=== PATIENT | female | born 1965 | race Two or more races ===

== ENCOUNTER 2018-11-10 09:50 | Inpatient (IN) | payer OTHER ==
[~2018-11-10] VITALS: Ht 157.5 cm; Wt 195.0 kg
[2018-11-21] MEDS ORDERED: VITAMINA (14:59)
[2018-11-21] MEDS ORDERED: CALTRATE 600+D1 EACH PO (14:59)
[2018-11-21] MEDS ORDERED: LOSARTAN-HCTZ1 EAC2 (14:59)
[2018-11-21] MEDS ORDERED: ECHINACEA400 MG (15:00)
[2018-11-22] MEDS ORDERED: VITAMIN D1000 UNI1 (07:53)
[2018-11-22] MEDS ORDERED: LOSARTAN-HCTZ1 EAC1 PO (07:54)
== END 2018-11-25 12:34 | disposition home or self-care (01) | DRG 331 ==
LOC: SURG 11-17 08:30 → O/R 11-22 06:03 → SURH 11-22 06:03 → SURG 11-22 08:30 → SURH 11-22 17:39
PROVIDERS: ADMIT Colon & Rectal Surgery
PROC: 3E0F7GC Introduction of Other Therapeutic Substance into Respiratory Tract, Via Natural or Artificial Opening (ICD-10-PCS; 2018-11-22)
PROC: 0DTN4ZZ Resection of Sigmoid Colon, Percutaneous Endoscopic Approach (ICD-10-PCS; principal; 2018-11-22 15:30)
DX: K57.32 Diverticulitis of large intestine without perforation or abscess without bleeding (principal); K63.89 Other specified diseases of intestine; I11.9 Hypertensive heart disease without heart failure; J45.20 Mild intermittent asthma, uncomplicated; E66.1 Drug-induced obesity

== ENCOUNTER 2019-09-26 06:22 | Outpatient (CLI) | payer OTHER ==
[~2019-09-26 06:22] MED LIST: CALTRATE 600+D1 EACH PO; ECHINACEA400 MG; LOSARTAN-HCTZ1 EAC1 PO; LOSARTAN-HCTZ1 EAC2; VITAMIN D1000 UNI1; VITAMINA
== END 2019-09-26 15:00 | disposition home or self-care (01) ==
LOC: LAB 06:22
PROVIDERS: ATTEND Obstetrics & Gynecology
DX: D50.8 Other iron deficiency anemias (principal); N39.0 Urinary tract infection, site not specified; E78.49 Other hyperlipidemia; E03.8 Other specified hypothyroidism; E55.9 Vitamin D deficiency, unspecified

== ENCOUNTER 2019-09-26 08:39 | Outpatient (CLI) | payer OTHER | END 2019-09-26 08:42 | disposition home or self-care (01) | LOC: MAMO-SONO 08:39 | PROVIDERS: ATTEND Obstetrics & Gynecology Obstetrics | DX: Z12.31 Encounter for screening mammogram for malignant neoplasm of breast (principal); N64.4 Mastodynia; N64.1 Fat necrosis of breast; Z01.419 Encounter for gynecological examination (general) (routine) without abnormal findings ==

== ENCOUNTER 2019-11-24 07:43 | Outpatient (CLI) | payer OTHER | END 2019-11-24 07:46 | disposition home or self-care (01) | LOC: RAD 07:43 | PROVIDERS: ATTEND Physical Medicine & Rehabilitation Pain Medicine | DX: M17.11 Unilateral primary osteoarthritis, right knee (principal) ==

== ENCOUNTER 2019-12-15 05:47 | Day surgery (SDC) | payer OTHER | END 2019-12-15 10:15 | disposition home or self-care (01) | LOC: AMB-ENDOS 05:47 | PROVIDERS: ATTEND Colon & Rectal Surgery | DX: K63.5 Polyp of colon (principal); K64.1 Second degree hemorrhoids; Z20.828 Contact with and (suspected) exposure to other viral communicable diseases ==

== ENCOUNTER 2020-02-26 07:28 | Outpatient (CLI) | payer OTHER | END 2020-02-26 07:33 | disposition home or self-care (01) | LOC: MRI 07:28 | PROVIDERS: ATTEND Specialist | DX: M17.11 Unilateral primary osteoarthritis, right knee (principal); S83.271A Complex tear of lateral meniscus, current injury, right knee, initial encounter | CPT/HCPCS: 73718 ==

== ENCOUNTER 2020-05-22 11:44 | Outpatient (CLI) | payer OTHER | END 2020-05-22 11:50 | disposition home or self-care (01) | LOC: LAB 11:44 | PROVIDERS: ATTEND Family Medicine | DX: D64.89 Other specified anemias (principal); I10 Essential (primary) hypertension; E11.9 Type 2 diabetes mellitus without complications; N39.0 Urinary tract infection, site not specified; E78.2 Mixed hyperlipidemia; E03.8 Other specified hypothyroidism; E55.9 Vitamin D deficiency, unspecified; Z12.11 Encounter for screening for malignant neoplasm of colon ==

== ENCOUNTER 2020-08-29 06:16 | Outpatient (CLI) | payer OTHER | END 2020-08-29 06:17 | disposition home or self-care (01) | LOC: LAB 06:16 | PROVIDERS: ATTEND Family Medicine | DX: E78.2 Mixed hyperlipidemia (principal) ==

== ENCOUNTER 2020-08-29 07:13 | Outpatient (CLI) | payer OTHER | END 2020-08-29 07:27 | disposition home or self-care (01) | LOC: MAMO-SONO 07:13 → RAD 07:13 → MAMO-SONO 09:15 | DX: R10.84 Generalized abdominal pain (principal); M54.2 Cervicalgia; M54.5 Low back pain; M47.14 Other spondylosis with myelopathy, thoracic region ==

== ENCOUNTER 2020-10-01 07:04 | Outpatient (CLI) | payer OTHER | END 2020-10-01 07:17 | disposition home or self-care (01) | LOC: MAMO-SONO 07:04 | PROVIDERS: ATTEND Family Medicine | DX: N64.59 Other signs and symptoms in breast (principal); N64.4 Mastodynia; Z12.31 Encounter for screening mammogram for malignant neoplasm of breast ==

== ENCOUNTER → 2020-12-20 | Outpatient (CLI) | payer OTHER | END | disposition home or self-care (01) | LOC: LAB 07:00 | DX: N95.2 Postmenopausal atrophic vaginitis (principal); Z01.419 Encounter for gynecological examination (general) (routine) without abnormal findings ==

== ENCOUNTER 2021-05-16 08:45 | Outpatient (CLI) | payer OTHER | END 2021-05-16 08:46 | disposition home or self-care (01) | LOC: LAB 08:45 | PROVIDERS: ATTEND Radiology Diagnostic Radiology | DX: K57.92 Diverticulitis of intestine, part unspecified, without perforation or abscess without bleeding (principal) ==

== ENCOUNTER 2021-05-19 07:10 | Outpatient (CLI) | payer OTHER | END 2021-05-19 07:20 | disposition home or self-care (01) | LOC: TOM 07:10 | PROVIDERS: ATTEND Family Medicine | DX: K57.92 Diverticulitis of intestine, part unspecified, without perforation or abscess without bleeding (principal) ==

== ENCOUNTER 2021-06-17 06:36 | Outpatient (CLI) | payer OTHER | END 2021-06-17 06:37 | disposition home or self-care (01) | LOC: LAB 06:36 | PROVIDERS: ATTEND Internal Medicine Critical Care Medicine | DX: J30.9 Allergic rhinitis, unspecified (principal); J45.20 Mild intermittent asthma, uncomplicated; R05.9 Cough, unspecified; Z20.822 Contact with and (suspected) exposure to COVID-19; R06.9 Unspecified abnormalities of breathing ==

== ENCOUNTER 2021-06-17 07:08 | Outpatient (CLI) | payer OTHER | END 2021-06-17 07:14 | disposition home or self-care (01) | LOC: RAD 07:08 | PROVIDERS: ATTEND Internal Medicine Critical Care Medicine | DX: R05.9 Cough, unspecified (principal) ==

== ENCOUNTER 2022-01-21 13:45 | Outpatient (CLI) | payer OTHER | END 2022-01-21 13:46 | disposition home or self-care (01) | LOC: LAB 13:45 | DX: D64.9 Anemia, unspecified (principal); E78.2 Mixed hyperlipidemia; I10 Essential (primary) hypertension; N39.0 Urinary tract infection, site not specified; E11.9 Type 2 diabetes mellitus without complications; E55.9 Vitamin D deficiency, unspecified; Z12.11 Encounter for screening for malignant neoplasm of colon; E03.9 Hypothyroidism, unspecified ==

== ENCOUNTER → 2022-01-21 | Outpatient (CLI) | payer OTHER | END | disposition home or self-care (01) | LOC: MAMO-SONO 14:50 | DX: Z12.31 Encounter for screening mammogram for malignant neoplasm of breast (principal); N64.4 Mastodynia ==

== ENCOUNTER → 2023-01-23 08:24 | Outpatient (CLI) | payer OTHER ==
[2023-01-23 09:49] LABS: HEMATOCRIT 39.7 % (36.0-45.00); HEMOGLOBIN 13.8 g/dL (12.0-15.00); MEAN CELL VOLUME 83.1 fL (80.00-100.00); MEAN CORPUSCULAR HEMOGLOBIN 28.8 pg (27.00-32.0); MEAN CORPUSCULAR HGB CONC 34.6 g/dl (32.0-36.0); PLATELET COUNT 270 K/uL (150-450); RED BLOOD COUNT 4.78 M/uL (4.00-6.00); RED CELL DISTRIBUTION WIDTH 14.9 % (11.5-14.5)
[2023-01-23 10:27] LABS: ALBUMIN 3.7 gm/dL (3.4-5.0); BILIRUBIN TOTAL 0.65 mg/dL (0.3-1.2); CALCIUM 9.4 mg/dL (8.5-10.1); CHOL HDL RATIO 3.5 (0-5.0); CREATININE SERUM 0.89 mg/dL (0.55-1.02); GFR 64.92; GLOBULINA 4.2 G/DL (2.4-3.5); POTASSIUM 3.38 mEq/L (3.5-5.1); TOTAL PROTEIN 7.9 gm/dL (6.4-8.2); TSH 2.3 uIU/mL (0.358-3.74)
== END | disposition home or self-care (01) ==
LOC: LAB 08:24
DX: D64.9 Anemia, unspecified (principal); I10 Essential (primary) hypertension; Z12.11 Encounter for screening for malignant neoplasm of colon; E03.9 Hypothyroidism, unspecified; E55.9 Vitamin D deficiency, unspecified; N39.0 Urinary tract infection, site not specified; E78.2 Mixed hyperlipidemia; K29.70 Gastritis, unspecified, without bleeding

== ENCOUNTER → 2023-02-16 09:49 | Outpatient (CLI) | payer OTHER ==
[2023-02-16 12:00] LABS: CREATININE SERUM 0.7 mg/dL (0.55-1.02)
== END | disposition home or self-care (01) ==
LOC: LAB 09:49
PROVIDERS: ATTEND Radiology Diagnostic Radiology
DX: K57.92 Diverticulitis of intestine, part unspecified, without perforation or abscess without bleeding (principal)

== ENCOUNTER 2023-02-18 07:11 | Outpatient (CLI) | payer OTHER | END 2023-02-18 07:14 | disposition home or self-care (01) | LOC: RAD 07:11 | DX: Z12.31 Encounter for screening mammogram for malignant neoplasm of breast (principal); N64.4 Mastodynia; K57.92 Diverticulitis of intestine, part unspecified, without perforation or abscess without bleeding ==

== ENCOUNTER 2023-05-01 07:10 | Outpatient (CLI) | payer OTHER ==
[2023-05-01 08:04] LABS: PH,URINE 5.5 (5.0-8.0); URINE APPEARANCE Clear; URINE BILIRRUBIN Negative (NEGATIVE); URINE BLOOD Negative; URINE COLOR Yellow; URINE GLUCOSE Negative (NEGATIVE); URINE LEUKOCYTE Moderate; URINE NITRATE Negative; URINE PROTEIN Negative (NEGATIVE)
[2023-05-01 08:05] LABS: URINE BACTERIA 565.6 uL (0.0-1933); URINE RBC 3.4 uL (0.0-20.8); URINE WBC 110.6 uL (0.0-23.2)
[2023-05-01 08:36] LABS: HEMATOCRIT 38.7 % (36.0-45.00); HEMOGLOBIN 13.3 g/dL (12.0-15.00); MEAN CELL VOLUME 84.1 fL (80.00-100.00); MEAN CORPUSCULAR HEMOGLOBIN 28.9 pg (27.00-32.0); MEAN CORPUSCULAR HGB CONC 34.3 g/dl (32.0-36.0); PLATELET COUNT 227 K/uL (150-450); RED CELL DISTRIBUTION WIDTH 15.4 % (11.5-14.5)
[2023-05-01 09:02] LABS: ALBUMIN 3.6 gm/dL (3.4-5.0); BILIRUBIN TOTAL 0.58 mg/dL (0.3-1.2); CHOL HDL RATIO 2.9 (0-5.0); CREATININE SERUM 0.68 mg/dL (0.55-1.02); GFR 88.56; GLOBULINA 3.7 G/DL (2.4-3.5); POTASSIUM 3.1 mEq/L (3.5-5.1); TOTAL PROTEIN 7.3 gm/dL (6.4-8.2); TSH 2.43 uIU/mL (0.358-3.74)
== END 2023-05-01 07:11 | disposition home or self-care (01) ==
LOC: LAB 07:10
DX: D64.9 Anemia, unspecified (principal); I10 Essential (primary) hypertension; E03.9 Hypothyroidism, unspecified; N39.0 Urinary tract infection, site not specified; E78.2 Mixed hyperlipidemia; E11.9 Type 2 diabetes mellitus without complications; Z12.11 Encounter for screening for malignant neoplasm of colon

== ENCOUNTER 2024-03-20 07:48 | Outpatient (CLI) | payer OTHER | END 2024-03-20 07:52 | disposition home or self-care (01) | LOC: MAMO-SONO 07:48 | PROVIDERS: ATTEND Obstetrics & Gynecology | DX: N64.4 Mastodynia (principal) ==